=== PATIENT | male | born 1980 | race Caucasian/White ===

== ENCOUNTER 2019-11-09 21:00 | Emergency (ER) | payer BC ==
--- NOTE | 2019-11-09 21:21 | Emergency Department Record ---
Anxiety - General Chief Complaint: Panic attack Stated Complaint: PANIC ATTACK Time Seen by Provider: 11/09/19 21:04 Source: Patient Mode of Arrival: Ambulatory Limitations: No limitations - History of Present Illness Initial Comments: 39 yo male presents to ED for evaluation of possible panic attacks for the past 1 week. Patient denies diagnosed history of panic attacks, but does report increased stress around this time of year as his children were from him at this time of year previously. Patient denies chest discomfort, difficulty in breathing. Patient reports that he feels anxious, unable to concentrate at work. MD Complaint: Anxiety Onset/Timin -: Days(s) Symptoms: Palpitations, Sense of impending doom Place: Work Severity: Moderate Quality: Constant, Worsening Provoking factors: Emotional stress Improves With: Nothing Worsens With: Thinking about event Associated symptoms: Chest pain, Malaise, Palpitations - Related Data Home Medications: Previous Rx's Medication Instructions Recorded Lorazepam [Ativan] 1 mg PO Q8H PRN #5 tablet 11/09/19 Travel Screening - Travel/Exposure Within Last 30 Days Have you traveled within the last 30 days?: No - Travel/Exposure Within Last Year Have you traveled outside the [place] in the last year?: No - Additonal Travel Details Have you been exposed to anyone with a communicable illness?: No - Travel Symptoms Symptom Screening: None Review of Systems Constitutional: Denies: Chills, Fever, Malaise, Night sweats Eyes: Denies: Eye discharge, Eye pain ENT: Denies: Congestion, Ear pain, Epistaxis Respiratory: Denies: Cough, Dyspnea Cardiovascular: Denies: Chest pain, Dyspnea on exertion Endocrine: Denies: Fatigue, Heat or cold intolerance Gastrointestinal: Denies: Abdominal pain, Nausea, Vomiting Genitourinary: Denies: Incontinence, Retention Musculoskeletal: Denies: Arthralgia, Back pain Skin: Denies: Bruising, Change in color Neurological: Denies: Abnormal gait, Confusion, Headache, Seizure Psychiatric: Reports: Anxiety Hematological/Lymphatic: Denies: Anemia, Blood Clots Past Medical History - SOCIAL HISTORY Smoking Status: Unknown if ever smoked Alcohol Use: Rare Drug Use: None Family Medical History Any Significant Family History?: No Physical Exam - General General Appearance: Alert, Oriented x3, Cooperative, Mild distress, Anxious Limitations: No limitations - Head Head exam: Atraumatic, Normocephalic, Normal inspection Head exam detail: negative: Abrasion, Contusion, Duffy's sign, General tenderness, Hematoma, Laceration - Eye Eye exam: Normal appearance. negative: Conjunctival injection, Periorbital swelling, Periorbital tenderness, Scleral icterus - ENT Ear exam: negative: Auricular hematoma, Auricular trauma Nasal Exam: negative: Active bleeding, Discharge, Dried blood, Foreign body Mouth exam: negative: Drooling, Laceration, Muffled voice, Tongue elevation - Neck Neck exam: Normal inspection. negative: Meningismus, Tenderness - Respiratory Respiratory exam: Normal lung sounds bilaterally. negative: Rales, Respiratory distress, Rhonchi, Stridor - Cardiovascular Cardiovascular Exam: Regular rate, Normal rhythm, Normal heart sounds - GI/Abdominal GI/Abdominal exam: Soft. negative: Rebound, Rigid, Tenderness - Rectal Rectal exam: Deferred - exam: Deferred - Extremities Extremities exam: Normal inspection. negative: Pedal edema, Tenderness - Back Back exam: Denies: CVA tenderness (R), CVA tenderness (L) - Neurological Neurological exam: Alert, Normal gait, Oriented X3 - Psychiatric Psychiatric exam: Normal affect, Normal mood - Skin Skin exam: Normal color. negative: Abrasion Type of lesion: negative: abrasion Course Vital Signs 11/09/19 21:05 Temperature 99.2 F Pulse Rate [ 93 H Pulse Ox Probe] Respiratory 16 Rate Blood Pressure 172/107 [Left Arm] Pulse Ox 99 - Reevaluation(s) Reevaluation #1: 11/09/19 21:37 EKG: NSR 76 Normal axis, normal intervals No acute ST-T wave changes Reevaluation #2: 11/09/19 22:15 Patient reassessed, reports improvement in his symptoms. Patient's symptoms appear c/w anxiety reaction. Patient appears stable for discharge at this time. Disposition Disposition: Discharge Clinical Impression: Anxiety reaction Disposition: Home, Self-Care Condition: (2) Stable Instructions: Generalized Anxiety Disorder (ED) Additional Instructions: Return to ED if your symptoms worsen or if you have any concerns. Ativan as directed. Follow-up with your family doctor in 3-5 days as directed. Prescriptions: Lorazepam [Ativan] 1 mg PO Q8H PRN #5 tablet PRN Reason: Anxiety Referrals: RUDDY BANKS [MEDICAL DOCTOR] - Forms: Patient Portal Access Time of Disposition: 22:16 Quality - Quality Measures Quality Measures: N/A - Blood Pressure Screening Does Patient Have Any of the Following: No Blood Pressure Classification: Hypertensive Reading Systolic Measurement: 172 Diastolic Measurement: 107 Screening for High Blood Pressure: < First Hypertensive BP, F/U Documented > [[id number]] First Hypertensive Follow-up Interventions: Referral to alternative/primary care provider.
[2019-11-09] MEDS: LORAZEPAM 0.5 MG TABLET PO ONE (21:39)
== END 2019-11-09 22:19 | disposition home or self-care (01) ==
LOC: ER 21:00
DX: F41.1 Generalized anxiety disorder (principal); F43.0 Acute stress reaction; R07.9 Chest pain, unspecified; R00.2 Palpitations
CPT/HCPCS: 93005; 93010; 99284